=== PATIENT | male | born 1930 | race Caucasian/White ===

== ENCOUNTER 2018-07-16 11:49 | Emergency (ER) | payer MEDICARE, BC ==
--- NOTE | 2018-07-16 12:06 | EDM.PDOC ---
ED HPI GENERAL MEDICAL PROBLEM - General Chief Complaint: Abdominal Pain Stated Complaint: FALL Time Seen by Provider: 07/16/18 11:50 Source of Information: Reports: Patient, Family History Limitations: Reports: Physical Impairment - History of Present Illness INITIAL COMMENTS - FREE TEXT/NARRATIVE: 87 o.w.m with a H/O HTN and Prostate enlargement, came to the ed 2 days after he fell at home while in the bathroom. Pt;s found him sitting on the floow and c/o right upper abd. and right lower chest pain. Fall was unwitnessed and the pt is not able to describe the mech of injury. Pt was able to walk with a walker. Pt's pain increases when he take a deep breath. No N/V/D no SOB. Pt has to get up multiple times at night to void. Bladder scan showed 55 cc of urine in hie bladder after voiding. No other acute medical issues. BP 178/89 RR 17 Pulse ox 98% on RA Pulse 79 Temp 36.6 Onset Date: 07/14/18 Onset Time: 09:00 Duration: Day(s):, Getting Worse, Intermittent Quality: Reports: Ache, Burning, Dull Improves with: Reports: Cold Therapy, Rest Worsens with: Reports: Movement Context: Reports: Trauma (fell 2 days ago) Associated Symptoms: Reports: No Other Symptoms - Related Data Allergies Allergy/AdvReac Type Severity Reaction Status Date / Time No Known Allergies Allergy Verified 07/16/18 12:00 Home Meds: Home Meds Acetaminophen/HYDROcodone [[place] 325-5 MG] 1 tab PO Q6H PRN #6 tablet 07/16/18 [ Rx] Review of Systems - Review of Systems Review Of Systems: See Below Constitutional: Reports: No Symptoms Eyes: Reports: No Symptoms Ears: Reports: No Symptoms Nose: Reports: No Symptoms Mouth/Throat: Reports: No Symptoms Respiratory: Reports: Pleuritic Chest Pain Cardiovascular: Reports: No Symptoms GI/Abdominal: Reports: Abdominal Pain Genitourinary: Reports: Other (has to go 3-4 tomes a night) Musculoskeletal: Reports: No Symptoms Skin: Reports: No Symptoms Neurological: Reports: No Symptoms Psychiatric: Reports: No Symptoms ED EXAM, GENERAL - Physical Exam Exam: See Below Exam Limited By: No Limitations General Appearance: Alert, WD/WN, Moderate Distress Eye Exam: Bilateral Eye: Normal Inspection Ears: Normal External Exam Ear Exam: Bilateral Ear: Auricle Normal Nose: Normal Inspection Throat/Mouth: Normal Inspection, Normal Lips, Normal Voice, No Airway Compromise Head: Atraumatic, Normocephalic Neck: Normal Inspection, Supple, Non-Tender, Full Range of Motion Respiratory/Chest: Lungs Clear, Decreased Breath Sounds (right ant lung due to pleuritic pain) Cardiovascular: Normal Peripheral Pulses, Regular Rate, Rhythm, No Edema, No Gallop GI/Abdominal: Tender (RUQ of abdomen) (Male) Exam: Deferred Rectal (Males) Exam: Deferred Back Exam: Normal Inspection, Full Range of Motion Extremities: Normal Inspection, Normal Range of Motion, Non-Tender, No Pedal Edema Neurological: Alert, Oriented, CN II-XII Intact, Normal Cognition, Normal Gait Psychiatric: Normal Affect, Normal Mood Skin Exam: Warm, Dry, Intact, Normal Color, No Rash Lymphatic: No Adenopathy Course - Vital Signs Text/Narrative:: 87 o.w.m with a H/O HTN and Prostate enlargement, came to the ed 2 days after he fell at home while in the bathroom. Pt;s found him sitting on the floow and c/o right upper abd. and right lower chest pain. Fall was unwitnessed and the pt is not able to describe the mech of injury. Pt was able to walk with a walker. Pt's pain increases when he take a deep breath. No N/V/D no SOB. Pt has to get up multiple times at night to void. Bladder scan showed 55 cc of urine in hie bladder after voiding. No other acute medical issues. BP 178/89 RR 17 Pulse ox 98% on RA Pulse 79 Temp 36.6 PE: WNWD W M with HTN and RUQ of abd. and right ant lower chest pain with insp and palpation. Imaging: CT abd with contrast: Fx 7tha nd 8th rip anteriorly. Labs: CBC nl BMP Nl except: BUN 28 Cr 1.6 GFR 41 Glc 256 INR 3.78 Impression: Fall, Fx'd 7thand 8th right ant ribs, H/O enlarged prostate. TxL MS, Ice, Reexam: Improved, NS helped the pain. Plan: D/C with instructions Last Recorded V/S: Last Vital Signs Temp 36.4 C 07/16/18 11:50 Pulse 66 07/16/18 15:30 Resp 18 07/16/18 15:30 BP 156/81 H 07/16/18 15:30 Pulse Ox 98 07/16/18 15:30 - Orders/Labs/Meds Orders: Active Orders 24 hr Category Date Time Status Bladder Scan [RC] ASDIRECTED Care 07/16/18 14:56 Active Incentive Spirometry [RT Incentive Spirometry] [RC] Care 07/16/18 15:35 Active ASDIRECTED Abdomen Pelvis w Cont [CT] Stat Exams 07/16/18 12:04 Taken impression: Fall Fx'd alex 7 and 8 right chest wall Labs: Laboratory Tests 07/16/18 07/16/18 07/16/18 Range/Units 12:16 12:16 12:16 WBC 6.6 (4.5-12.0) X10-3/uL RBC 4.55 (4.30-5.75) x10(6)uL Hgb 13.8 (13.5-17.8) g/dL Hct 42.1 (30.0-51.3) % MCV 92.5 (80-96) fL MCH 30.4 (27.7-33.6) pg MCHC 32.9 (32.2-35.4) g/dL RDW 12.9 (11.5-15.5) % Plt Count 135 (125-369) X10(3)uL MPV 11.2 H (7.4-10.4) fL Neut % (Auto) 72.2 (46-82) % Lymph % (Auto) 17.6 (13-37) % [place] % (Auto) 8.1 (4-12) % Eos % (Auto) 2 (1.0-5.0) % Baso % (Auto) 1 (0-2) % Neut # (Auto) 4.8 (1.6-8.3) # Lymph # (Auto) 1.2 (0.6-5.0) # [place] # (Auto) 0.5 (0.0-1.3) # Eos # (Auto) 0.1 (0.0-0.8) # Baso # (Auto) 0.0 (0.0-0.2) # PT 36.2 H* (8.7-11.1) INR 3.78 H (0.89-1.13) Sodium 143 (135-145) mmol/L Potassium 4.5 (3.5-5.3) mmol/L Chloride 106 (100-110) mmol/L Carbon Dioxide 29 (21-32) mmol/L BUN 28 H (7-18) mg/dL Creatinine 1.6 H (0.70-1.30) mg/dL Est Cr Clr Drug Dosing TNP Estimated GFR (MDRD) 41 L (>60) BUN/Creatinine Ratio 17.5 (9-20) Glucose 253 H (80-116) mg/dL Calcium 8.6 (8.6-10.2) mg/dL Total Bilirubin 0.6 (0.1-1.3) mg/dL Direct Bilirubin 0.10 (0.10-0.20) mg/dL AST 18 (5-25) IU/L ALT 17 (12-36) U/L Alkaline Phosphatase 88 (56-112) IU/L Total Protein 7.1 (6.0-8.0) g/dL Albumin 3.4 (2.9-4.5) g/dL Amylase 83 (25-115) U/L Meds: Medications Discontinued Medications Generic Name Dose Route Start Last Admin Trade Name Freq PRN Reason Stop Dose Admin Iopamidol 100 ml 07/16/18 12:16 Isovue-370 (76%) IV 07/16/18 12:17 ONETIME ONE Morphine Sulfate 2 mg 07/16/18 12:07 07/16/18 15:04 Morphine IVPUSH 07/16/18 12:08 Not Given ONETIME ONE Morphine Sulfate 2 mg 07/16/18 15:03 07/16/18 15:09 Morphine IVPUSH 07/16/18 15:04 2 mg ONETIME ONE Administration Departure - Departure Time of Disposition: 15:26 Disposition: Home, Self-Care 01 Condition: Good Clinical Impression: Supratherapeutic INR Fall Qualifiers: Encounter type: initial encounter Qualified Code(s): W19.XXXA - Unspecified fall, initial encounter - Discharge Information Prescriptions: Acetaminophen/HYDROcodone [[place] 325-5 MG] 1 tab PO Q6H PRN #6 tablet PRN Reason: for severe pain only Instructions: Fall Prevention in the Home, Adult, [id number], Incentive Spirometer, Rib Fracture, [id number] Referrals: Tucker Brock MD [Primary Care Provider] - Forms: ED Department Discharge Additional Instructions: Please apply ice to the affected area, Motin for mod pain, [place] for severe pain. Please ambulate daily. Please f/u your PMD, use incentive spirometer come back if your symptoms get worse acutely. - My Orders Last 24 Hours: My Active Orders 07/16/18 12:04 Abdomen Pelvis w Cont [CT] Stat 07/16/18 14:56 Bladder Scan [RC] ASDIRECTED 07/16/18 15:35 Incentive Spirometry [RT Incentive Spirometry] [RC] ASDIRECTED - Assessment/Plan Last 24 Hours: My Active Orders 07/16/18 12:04 Abdomen Pelvis w Cont [CT] Stat 07/16/18 14:56 Bladder Scan [RC] ASDIRECTED 07/16/18 15:35 Incentive Spirometry [RT Incentive Spirometry] [RC] ASDIRECTED
[2018-07-16] MEDS ORDERED: Morphine 2 MG/ML Syringe IVPUSH ONE ×2 (12:07→15:03)
[2018-07-16] MEDS ORDERED: Iopamidol 755 Mg/ML 100 ML Bottle IV ONE (12:16)
== END 2018-07-16 16:00 | disposition home or self-care (01) ==
LOC: FB.ED 11:49
DX: S22.41XA Multiple fractures of ribs, right side, initial encounter for closed fracture (principal); I10 Essential (primary) hypertension; Y92.002 Bathroom of unspecified non-institutional (private) residence as the place of occurrence of the external cause; W18.30XA Fall on same level, unspecified, initial encounter
CPT/HCPCS: 36415; 74177; 80048; 80076; 82150; 85025; 85610; 94150; 96374; 99284; J2270

== ENCOUNTER 2018-07-20 11:32 | Inpatient (IN) | payer MEDICARE, BC ==
--- NOTE | 2018-07-20 12:56 | EDM.PDOC ---
ED HPI GENERAL MEDICAL PROBLEM - General Chief Complaint: Laceration Stated Complaint: CUT TO HEAD Time Seen by Provider: 07/20/18 12:15 Source of Information: Reports: Patient History Limitations: Reports: No Limitations - History of Present Illness INITIAL COMMENTS - FREE TEXT/NARRATIVE: 87-year-old male who was sitting at the table and eating breakfast at approximately 10:30 AM and he apparently lost his balance and fell striking his right occiput on the cabinet. There was no loss of consciousness. He had no dizziness or presyncope prior to this. He apparently fell last week on 2018 and had several rib fractures on the right side. He has been doing okay since then but has had pain in the area and has required pain medication. The family reports that he seems to be quite a bit more weak then he has been. He tells me that he really has no pain right now. He states if he moves the wrong way he does have some pain in his right lateral chest that is a sharp pain and he rates it as an 8/10 at that point. It is a 0/10 at this point. He is also reporting the me that he has some mild neck soreness posteriorly and he is unsure if this is old or new. He denies any pain in the area of his injury which is in his right occiput with a scalp laceration here. No nausea. No vomiting. He is chronically anticoagulated on Coumadin. There are no other associated signs or symptoms. There are no other modifying factors. Onset: Today (10:30 AM) Duration: Other (No pain in head) Location: Reports: Head, Neck, Chest (Right lateral chest--this is from a previous fall and rib fractures and is better with each day.) Quality: Reports: Dull (Mild pain in neck. No pain in his occiput.) Severity: Mild Improves with: Reports: Rest Worsens with: Reports: Movement Context: Reports: Other (As above) Associated Symptoms: Reports: No Other Symptoms Other Treatments CREDIT RESOLUTION REPRESENTATIVE: Nothing - Related Data Allergies Allergy/AdvReac Type Severity Reaction Status Date / Time No Known Allergies Allergy Verified 07/20/18 11:49 Home Meds: Home Meds Acetaminophen/HYDROcodone [[place] 325-5 MG] 1 tab PO Q6H PRN #6 tablet 07/16/18 [ Rx] Lisinopril 10 mg BID 07/20/18 [History] Propranolol [Inderal] 10 mg PO BID 07/20/18 [History] Warfarin [Coumadin] 5 mg PO DAILY 07/20/18 [History] glipiZIDE [Glucotrol] 5 mg DAILY 07/20/18 [History] levETIRAcetam [Keppra] 250 mg PO DAILY 07/20/18 [History] levETIRAcetam [Keppra] 500 mg PO BEDTIME 07/20/18 [History] Past Medical History HEENT History: Reports: Impaired Vision Cardiovascular History: Reports: Afib, Heart Murmur, High Cholesterol, Hypertension, [place], Other (See Below) Other Cardiovascular History: spouse said that patient had a heart attack 40 years ago, heart murmur. 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, hemorrhagic CVA Psychiatric History: Reports: Anxiety, Depression Endocrine/Metabolic History: Reports: Diabetes, Type II, Hypothyroidism Hematologic History: Reports: Anticoagulation Therapy (On Coumadin), Blood Transfusion(s) Oncologic (Cancer) History: Reports: Colon - Infectious Disease History Infectious Disease History: Reports: Chicken Pox, Measles, Mumps - Past Surgical History HEENT Surgical History: Reports: Adenoidectomy, Tonsillectomy GI Surgical History: Reports: Appendectomy, Colon, Colonoscopy Male Surgical History: Reports: Other (See Below) Other Male Surgeries/Procedures: said that patient had a prostate procedure done unsure what kind of procedure. Musculoskeletal Surgical History: Reports: Other (See Below) Other Musculoskeletal Surgeries/Procedures:: R hip surgery Social & Family History - Tobacco Use Smoking Status *Q: Former Smoker (Only cigars and he has not smoked for the past 40 years) Tobacco Use Within Last Twelve Months: No - Caffeine Use Caffeine Use: Reports: Soda Other Caffeine Use: seldom - Alcohol Use Alcohol Use History: No - Living Situation & Occupation Living situation: Reports: Occupation: Retired Social History Comment: Lives at home independently with his . ED ROS GENERAL - Review of Systems Review Of Systems: See Below Constitutional: Reports: No Symptoms HEENT: Reports: No Symptoms Respiratory: Reports: No Symptoms Cardiovascular: Reports: No Symptoms Endocrine: Reports: No Symptoms GI/Abdominal: Reports: No Symptoms : Reports: No Symptoms Musculoskeletal: Reports: Neck Pain (Mild posterior) Skin: Reports: Other (Laceration to right occipital scalp) Neurological: Reports: Pre-Existing Deficit (Chronic right-sided weakness), Other (No loss of consciousness. No dizziness. No presyncope.) Hematologic/Lymphatic: Reports: Other (Chronically anticoagulated on Coumadin.) Immunologic: Reports: No Symptoms ED EXAM, SKIN/RASH Exam: See Below Exam Limited By: No Limitations General Appearance: Alert, WD/WN, No Apparent Distress Eye Exam: Bilateral Eye: EOMI, Normal Inspection, PERRL Ears: Normal External Exam, Hearing Loss (Chronic) Nose: Normal Inspection, Normal Mucosa, No Blood, Other (Face stable) Throat/Mouth: Normal Inspection, Normal Voice, No Airway Compromise Head: Normocephalic, Other (No crepitus. No depression. Occipital scalp laceration) Neck: Normal Inspection, Tender Midline (Mildly tender posteriorly) Respiratory/Chest: No Respiratory Distress, Lungs Clear, Normal Breath Sounds, No Accessory Muscle Use, Chest Non-Tender Cardiovascular: Normal Peripheral Pulses, No Gallop, Irregularly Irregular Peripheral Pulses: 2+: Radial (L), Radial (R) GI/Abdominal: Normal Bowel Sounds, Soft, Non-Tender, No Organomegaly, No Distention, No Mass Back Exam: Normal Inspection. No: Vertebral Tenderness Extremities: Normal Inspection, Normal Range of Motion, Normal Capillary Refill Neurological: Alert, Oriented, Normal Cognition, Other (Right-sided weakness, chronic and unchanged per family) Psychiatric: Normal Affect Skin: Warm, Dry, Normal Color, Other (3.5 cm laceration to right occipital scalp ) Location, Skin: Head (Right occipital scalp) Characteristics: Linear Lymphatic: No Adenopathy ED SKIN PROCEDURES - Laceration/Wound Repair Right Occipital Lac/Wound length In cm: 3.5 Appearance: Subcutaneous, Clean Distal NVT: Neuro & Vascular Intact Anesthetic Type: Local Local Anesthesia - Lidocaine (Xylocaine): 1% Plain Local Anesthetic Volume: 4cc Skin Prep: Chlorhexidine ([place]), Saline Exploration/Debridement/Repair: Other (No debridement) Closed with: [place] # of Sutures: 4 EKG INTERPRETATION EKG Date: 07/20/18 Time: 15:38 Rhythm: NSR Rate (Beats/Min): 52 [place]: LAD-Left [place] Deviation P-Wave: Present (Prolonged ND interval/first-degree AV block) QRS: Other (LAFB; LVH) ST-T: Normal QT: Normal Comparison: NA - No Prior EKG (No prior EKG in our system for comparison.) EKG Interpretation Comments: Normal sinus rhythm with a rate of 52. There is a first-degree AV block. There is evidence of LVH. There is a right bundle-branch block and a left anterior fascicular block with a left axis. There is no current of injury or ischemia present. Course - Vital Signs Last Recorded V/S: Last Vital Signs Temp 36.4 C 07/20/18 15:49 Pulse 53 L 07/20/18 15:49 Resp 18 07/20/18 15:49 BP 166/70 H 07/20/18 15:49 Pulse Ox 100 07/20/18 15:49 - Orders/Labs/Meds Orders: Active Orders 24 hr Category Date Time Status Patient Status Manage Transfer [TRANSFER] Routine ADT 07/20/18 14:29 Active EKG Documentation Completion [RC] ASDIRECTED Care 07/20/18 14:21 Active Vaccines to be Administered [RC] PER UNIT ROUTINE Care 07/20/18 14:28 Active Sodium Chloride 0.9% [Saline Flush] Med 07/20/18 14:28 Active 10 ml FLUSH ASDIRECTED PRN Peripheral IV Insertion Adult [OM.PC] Routine Oth 07/20/18 14:28 Ordered EKG 12 Lead [EK] Routine Ther 07/20/18 14:21 Ordered Medication Orders Acetaminophen (Tylenol) 650 mg PO Q4H PRN PRN Reason: Pain (Mild 1-3)/fever Glipizide (Glucotrol) 5 mg PO DAILY HARIKA Levetiracetam (Keppra) 500 mg PO BEDTIME HARIKA Levetiracetam (Keppra) 250 mg PO DAILY HARIKA Lisinopril (Prinivil) 10 mg PO BID HARIKA Sodium Chloride (Saline Flush) 10 ml FLUSH ASDIRECTED PRN PRN Reason: Keep Vein Open Labs: Laboratory Tests 07/20/18 07/20/18 07/20/18 Range/Units 11:53 12:45 12:50 WBC 5.0 (4.5-12.0) X10-3/uL RBC 4.26 L (4.30-5.75) x10(6)uL Hgb 13.1 L (13.5-17.8) g/dL Hct 38.9 (30.0-51.3) % MCV 91.4 (80-96) fL MCH 30.7 (27.7-33.6) pg MCHC 33.6 (32.2-35.4) g/dL RDW 12.7 (11.5-15.5) % Plt Count 116 L (125-369) X10(3)uL MPV 11.6 H (7.4-10.4) fL Neut % (Auto) 67.4 (46-82) % Lymph % (Auto) 19.9 (13-37) % [place] % (Auto) 9.7 (4-12) % Eos % (Auto) 3 (1.0-5.0) % Baso % (Auto) 0 (0-2) % Neut # (Auto) 3.4 (1.6-8.3) # Lymph # (Auto) 1.0 (0.6-5.0) # [place] # (Auto) 0.5 (0.0-1.3) # Eos # (Auto) 0.1 (0.0-0.8) # Baso # (Auto) 0.0 (0.0-0.2) # PT (8.7-11.1) INR (0.89-1.13) Sodium (135-145) mmol/L Potassium (3.5-5.3) mmol/L Chloride (100-110) mmol/L Carbon Dioxide (21-32) mmol/L BUN (7-18) mg/dL Creatinine (0.70-1.30) mg/dL Est Cr Clr Drug Dosing mL/min Estimated GFR (MDRD) (>60) BUN/Creatinine Ratio (9-20) Glucose (80-116) mg/dL POC Glucose 301 H (80-116) mg/dL Calcium (8.6-10.2) mg/dL Magnesium (1.8-2.5) mg/dL Urine Color Yellow (YELLOW) Urine Appearance Clear (CLEAR) Urine pH 5.0 (5.0-6.5) Ur Specific [place] 1.020 (1.010-1.025) Urine Protein Negative (NEGATIVE) mg/dL Urine Glucose (UA) 250 H (NORMAL) mg/dL Urine Ketones Negative (NEGATIVE) mg/dL Urine Occult Blood Negative (NEGATIVE) Urine Nitrite Negative (NEGATIVE) Urine Bilirubin Negative (NEGATIVE) Urine Urobilinogen Normal (NEGATIVE) mg/dL Ur Leukocyte Esterase Small H (NEGATIVE) Urine WBC 5-10 H (0-5) Ur Squamous Epith Cells Few H (NS,R,O) Urine Bacteria Moderate H (NS) 07/20/18 07/20/18 Range/Units 12:50 12:50 WBC (4.5-12.0) X10-3/uL RBC (4.30-5.75) x10(6)uL Hgb (13.5-17.8) g/dL Hct (30.0-51.3) % MCV (80-96) fL MCH (27.7-33.6) pg MCHC (32.2-35.4) g/dL RDW (11.5-15.5) % Plt Count (125-369) X10(3)uL MPV (7.4-10.4) fL Neut % (Auto) (46-82) % Lymph % (Auto) (13-37) % [place] % (Auto) (4-12) % Eos % (Auto) (1.0-5.0) % Baso % (Auto) (0-2) % Neut # (Auto) (1.6-8.3) # Lymph # (Auto) (0.6-5.0) # [place] # (Auto) (0.0-1.3) # Eos # (Auto) (0.0-0.8) # Baso # (Auto) (0.0-0.2) # PT 56.8 H* (8.7-11.1) INR 5.96 H* (0.89-1.13) Sodium 145 (135-145) mmol/L Potassium 4.8 (3.5-5.3) mmol/L Chloride 109 (100-110) mmol/L Carbon Dioxide 29 (21-32) mmol/L BUN 45 H D (7-18) mg/dL Creatinine 1.7 H (0.70-1.30) mg/dL Est Cr Clr Drug Dosing 30.42 mL/min Estimated GFR (MDRD) 38 L (>60) BUN/Creatinine Ratio 26.5 H (9-20) Glucose 179 H (80-116) mg/dL POC Glucose (80-116) mg/dL Calcium 8.5 L (8.6-10.2) mg/dL Magnesium 2.1 (1.8-2.5) mg/dL Urine Color (YELLOW) Urine Appearance (CLEAR) Urine pH (5.0-6.5) Ur Specific [place] (1.010-1.025) Urine Protein (NEGATIVE) mg/dL Urine Glucose (UA) (NORMAL) mg/dL Urine Ketones (NEGATIVE) mg/dL Urine Occult Blood (NEGATIVE) Urine Nitrite (NEGATIVE) Urine Bilirubin (NEGATIVE) Urine Urobilinogen (NEGATIVE) mg/dL Ur Leukocyte Esterase (NEGATIVE) Urine WBC (0-5) Ur Squamous Epith Cells (NS,R,O) Urine Bacteria (NS) Meds: Medications Generic Name Dose Route Start Last Admin Trade Name Freq PRN Reason Stop Dose Admin Acetaminophen 650 mg 07/20/18 15:38 Tylenol PO Q4H PRN Pain (Mild 1-3)/fever Glipizide 5 mg 07/21/18 09:00 Glucotrol PO DAILY HARIKA Levetiracetam 500 mg 07/20/18 21:00 Keppra PO BEDTIME HARIKA Levetiracetam 250 mg 07/21/18 09:00 Keppra PO DAILY HARIKA Lisinopril 10 mg 07/20/18 21:00 Prinivil PO BID HARIKA Sodium Chloride 10 ml 07/20/18 14:28 Saline Flush FLUSH ASDIRECTED PRN Keep Vein Open Discontinued Medications Generic Name Dose Route Start Last Admin Trade Name Freq PRN Reason Stop Dose Admin Ceftriaxone Sodium 1 gm 07/20/18 15:30 Rocephin IV 07/20/18 15:31 ONETIME ONE Diphtheria/Tetanus/Acell Pertussis 0.5 ml 07/20/18 14:28 07/20/18 15:48 Adacel IM 07/20/18 14:29 0.5 ml .ONCE ONE Administration - Radiology Interpretation Free Text/Narrative:: CT scan of the patient's head showed bilateral chronic subdural hygromas or hematomas. No acute bleed. No fracture per the radiologist. CT scan of the cervical spine showed degenerative changes but no acute pathology per the radiologist. - Re-Assessments/Exams Free Text/Narrative Re-Assessment/Exam: 07/20/18 14:32: The patient's blood tests do show an increase in his INR from 3.7 to 5.96 and slight worsening of his renal insufficiency. Patient with recurrent fall and questionable recurrent syncope, supratherapeutic INR, bilateral cystic hygromas and progressive weakness with inability to ambulate without extreme assistance over the past 4 days since seen on 07/16/2018. Patient has failed outpatient management. He is at significant risk for recurrent falls and further injury. He is also at significant risk for morbidity and mortality. His plan of care cannot be safely accomplished as an outpatient. Therefore he will need admission to the hospital. It will take longer than a 2 midnight stay accomplish this plan of care as well. I have discussed this with the patient's and she is in agreement with the plans for admission. I have called and discussed patient's case with Dr. Tesfaye, hospitalist at [facility], and he has agreed to admit the patient. Additionally an EKG has been ordered and I will review this prior to the patient going to the floor. The patient was given a Tdap Immunization to bring his tetanus immunization status up-to-date as well. Departure - Departure Time of Disposition: 14:37 Disposition: Admitted As Inpatient 64 Condition: Fair Clinical Impression: Recurrent syncope, Supratherapeutic INR, Acute on chronic renal insufficiency, Chronic subdural hematoma, Rapidly progressive weakness Head contusion Qualifiers: Encounter type: initial encounter Contusion of head detail: scalp Qualified Code(s): S00.03XA - Contusion of scalp, initial encounter Occipital scalp laceration Qualifiers: Encounter type: initial encounter Qualified Code(s): S01.01XA - Laceration without foreign body of scalp, initial encounter - Discharge Information - My Orders Last 24 Hours: My Active Orders 07/20/18 14:21 EKG Documentation Completion [RC] ASDIRECTED EKG 12 Lead [EK] Routine 07/20/18 14:28 Vaccines to be Administered [RC] PER UNIT ROUTINE Sodium Chloride 0.9% [Saline Flush] 10 ml FLUSH ASDIRECTED PRN Peripheral IV Insertion Adult [OM.PC] Routine 07/20/18 14:29 Patient Status Manage Transfer [TRANSFER] Routine - Assessment/Plan Last 24 Hours: My Active Orders 07/20/18 14:21 EKG Documentation Completion [RC] ASDIRECTED EKG 12 Lead [EK] Routine 07/20/18 14:28 Vaccines to be Administered [RC] PER UNIT ROUTINE Sodium Chloride 0.9% [Saline Flush] 10 ml FLUSH ASDIRECTED PRN Peripheral IV Insertion Adult [OM.PC] Routine 07/20/18 14:29 Patient Status Manage Transfer [TRANSFER] Routine
--- NOTE | 2018-07-20 13:54 | CT ---
INDICATION: Fall with head injury, patient on Coumadin, struck right posterior head. CT HEAD WITHOUT CONTRAST: Spiral examination of the brain was obtained with sagittal and coronal reconstructions, 07/20/18 - no comparisons. Total exam DLP = 1,244.99 mGy-cm. The paranasal sinuses and mastoid air cells visualized appear to be well- aerated. No cranial fracture site was noted. Calcifications are noted in the left vertebral and internal carotid arteries, as well as middle cerebral artery on the right. No significant shift of midline structures was suggested. Lateral ventricles were prominent, as are the remainder of the ventricles, suggesting central atrophy with relatively more prominent left lateral ventricle suggesting additional atrophy on the left compared with the right. Patchy decreased density in the white matter is more severe on the left, compatible with moderate microvascular disease on the left and mild on the right , although other cause of leukoencephalopathy cannot be entirely excluded. There are frontoparietal subdural hygromas but with some increased density present, raising question of chronic subdural hematomas. No definite acute intracranial abnormality was identified - no definite fresh blood in the arachnoid space, subdural or parenchymal, was seen. IMPRESSION: 1. Possible chronic bilateral subdural hematomas, frontoparietal and some temporal on the right; however, no acute intracranial abnormality was suggested. 2. Microvascular disease type changes in the white matter, more severe on the left. 3. Central atrophy, more severe on the left. 4. Cerebrovascular disease with arterial calcifications noted. Report was called to Dr. Moreland at approximately 1300 hours on 07/20/18. [facility]
[2018-07-20] MEDS ORDERED: Diphtheria,Pertussis(Acell),Tetanus Vaccine 0.5 ML SDV IM ONE (14:28)
[2018-07-20] MEDS ORDERED: Sodium Chloride 0.9% 10 ML Syringe FLUSH PRN (14:28)
[2018-07-20] MEDS ORDERED: cefTRIAXone 1 GM in Sodium Chloride 0.9% 50 ML IV ONE (14:42)
--- NOTE | 2018-07-20 14:46 | CT ---
INDICATION: Fall with head injury, mild neck pain. CT CERVICAL SPINE WITHOUT CONTRAST: Spiral 2.5 mm axial sections were obtained through the cervical spine with sagittal and coronal reconstructions, 07/20/18 - no comparisons. Total exam DLP = 375.30 mGy-cm. Degenerative changes are noted at the atlantoodontoid joint with severe narrowing of that joint space, as well as some subchondral cystic change, as well as sclerosis. Otherwise, the odontoid and atlas appear to be intact. Prevertebral space and bone density appear to be normal. A definite acute fracture or dislocation was not identified in general. Hypertrophic degenerative changes are noted from C2-3 through T2-3. Degenerative disk disease is suggested, mild at C4-5 and fairly severe with virtually no remaining disk space at C5-6. Degenerative disk disease is also seen at C6-7, C7-T1, and probably at T1-T2 with sclerosis and subchondral cystic changes at those levels but with the most severe changes seen at the C5- 6 level and reversal of normal cervical lordosis centered at that level. Neural foramina were narrowed at C5-6, C6-7. Hypertrophic changes are noted at lateral masses, most severe at the mid cervical levels with uncinate joint degenerative changes also most severe at those levels. The lung apices that were included on the exam were unremarkable. No evidence of gross spinal stenosis was seen. However, there is some impingement on the canal present, especially at the C5-6 level with some narrowing, especially on the right, due to the hypertrophic changes off vertebral bodies at C5-6. There is some narrowing also of the canal mostly on the left at C6-7. IMPRESSION: 1. No acute fracture or dislocation identified. 2. Osteoarthritis and degenerative disk disease, as noted above. Report was called to Dr. Moreland at 1302 hours on 07/20/18. [facility]
[2018-07-20] MEDS ORDERED: cefTRIAXone 1 GM Vial IV ONE (15:30)
[2018-07-20] MEDS ORDERED: Acetaminophen 325 MG Tab PO PRN (15:38)
[2018-07-20] MEDS ORDERED: Acetaminophen/HYDROcodone 325-5 MG Tab PO PRN (17:23)
[2018-07-20] MEDS ORDERED: levETIRAcetam 500 MG Tab PO SCH (21:00)
[2018-07-20] MEDS: Lisinopril 10 MG Tab PO SCH (21:00)
--- NOTE | 2018-07-21 00:06 | HP ---
ADMISSION DATE: 07/20/2018 CHIEF COMPLAINT: Syncope with fall. HISTORY OF PRESENT ILLNESS: Mr. Turner is an 87-year-old resident of [place], [place] with a history of a remote CVA back in 2000, which caused him to have a greater than 1-month hospitalization and right-sided residual history of an AZ 42 years ago, hypertension, diabetes, surgery for colon cancer and chronic anticoagulation. According to his , he is on anticoagulation because of the stroke and was started within the first month after stroke, but she describes his stroke as a bleeding-type stroke. Data from the clinic also lists a partial seizure disorder post stroke. According to the patient and his approximately 5 days ago, he was sitting on the toilet seat. His thought he was in the bathroom a little bit too long, so went to check on him, she was just going to open the door when she heard a thump and saw that he had fallen off the toilet seat onto the grab bar for the tub. He broke 2 ribs, went into the clinic, and was checked by Dr. Brock, he was treated with pain medications and seemed to be doing satisfactorily at home. This morning, he was sitting in a chair at the kitchen table when he fell off the chair onto the floor. He did not sustain any new injuries. His was there and witnessed it. She did not recognize that he was lightheaded prior to the fall, but he was not trying to stand up and he did not have loss of consciousness. For this reason, he was taken in to the emergency room at [facility], evaluated by Dr. Moreland and is now admitted with episodes with likely syncope. His does recall that he has fallen a few times in the past at least one of the times she remembers it was from the sitting position as well. He has not had documented arrhythmia, but as mentioned, he has a history of partial seizure disorder. PAST MEDICAL HISTORY: He is status post a stroke in 2000 with right hemiplegia and dysarthria. He is status post appendectomy and ORIF of a severe right crushing hip injury. He has had malignant colon polypectomy with wedge rectal resection and primary anastomosis approximately 40 years ago with no recurrence. He has had bilateral cataract surgeries. He reports having had an AZ at age 43 with a good recovery. He has type 2 diabetes and chronic essential hypertension, both that he reports is well controlled. MEDICATIONS: 1. Lisinopril 10 mg b.i.d. 2. Keppra 250 mg a.m., 500 mg p.m. 3. Glipizide 5 mg daily. 4. He has also been on warfarin 5 mg daily and propranolol 10 mg b.i.d., as well as recently hydrocodone 1 tablet every 6 hours p.r.n. pain for his recent rib fractures. ALLERGIES: None. HABITS: Nonsmoker. No alcohol. No caffeine. FAMILY AND SOCIAL HISTORY: The patient's father at age 43 of stomach cancer. Mother at age 65 of multiple strokes. He had 1 brother, who was in this institution, who in his 40s. The patient has been for 42 years to his current . They are both before and he had 4 children and she had 3 children when they got , 3 of the children are living within the [facility] [place]. 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 He currently lives in [place]. REVIEW OF SYSTEMS: GENERAL: No tonic-clonic seizures or fully witnessed syncopal episodes. HEENT: No recent changes in hearing or vision. No headaches. He did hit his head and required laceration repair in the ER. No sore throat or URI. CHEST: No cough or purulent sputum. No chest pain or palpitations. GASTROINTESTINAL: No abdominal pain, nausea, or diarrhea. MUSCULOSKELETAL: No joint inflammation, swelling, or skin rash. He does walk with a walker at home due to his old stroke and poor balance. No mood instability or temperature intolerance. PHYSICAL EXAMINATION: GENERAL: He is alert. He is hard of hearing; however, no hearing aids are in place. VITAL SIGNS: Blood pressure 166/70, pulse 53 and regular, respirations 18, O2 saturation 100% on room air, temp 97.6, weight 206 pounds stated. SKIN: Anicteric, warm, dry. There was a 3.5 cm laceration in the right occipital scalp with derrick in place. LUNGS: Clear at the bases. HEART: Regular without murmur, rub, or gallop. Carotids are brisk without bruits. ABDOMEN: Normal bowel sounds. Soft and nontender. EXTREMITIES: Warm, well perfused. He has 1+ edema at the left medial malleolus and 3+ edema at the right lower extremity. He has normal strength in the left upper and lower extremities and moderate antigravity strength in the right lower extremity. [employer] strength and arm abduction are significantly weaker on the right upper extremity than the left. Speech is somewhat halting. EKG shows sinus rhythm at 52 beats per minute with likely LVH and right bundle branch block. No ischemic changes. LABORATORY DATA: Hemoglobin 13.1, white count 5000. INR 5.96. Creatinine 1.7, BUN 45, glucose 301. Urinalysis; 5-[address] of the head showed evidence of old small frontoparietal hygromas, no acute findings, but left central atrophy present with microvascular changes. ASSESSMENT: 1. An 87-year-old man with several falls resulting in rib fractures last week and scalp laceration, head contusion this week with prior episodes of falls as well in the setting of an underlying seizure disorder, post stroke, and bifascicular block on EKG. 2. History of old cerebrovascular accident with residual right partial hemiplegia. 3. Significant hearing loss. 4. Chronic essential hypertension. 5. Type 2 diabetes. 6. Remote history of a myocardial infarction at age 43. Details unclear. 7. Remote history of colorectal surgery for colon cancer with no current evidence of recurrence. 8. Chronic anticoagulation post stroke. 9. High INR. PLAN: He is admitted to the hospital. We will put him on telemetry. We will hold his warfarin and his beta lisa. We will consider increasing the Keppra to 500 mg b.i.d. We will provide palliative care measures for his underlying old cerebrovascular disease and old stroke. I anticipate a 48 to 72-hour hospital stay with plans for him to return home in [place] upon discharge. /[id number] ERICK/RENUKA
--- NOTE | 2018-07-21 08:03 | HP ---
ADMISSION DATE: 07/20/2018 ADDENDUM: PAST MEDICAL HISTORY: TURP for BPH. /[id number] EMILY
[2018-07-21] MEDS: glipiZIDE 5 MG Tab PO SCH (08:20)
[2018-07-21] MEDS: Lisinopril 10 MG Tab PO SCH ×2 (08:20→21:19)
[2018-07-21] MEDS ORDERED: levETIRAcetam 250 MG Tab PO SCH (09:00)
[2018-07-21] MEDS ORDERED: levETIRAcetam 250 MG Tab PO ONE (09:45)
[2018-07-21] MEDS ORDERED: Nystatin Topical Powder 15 GM Bottle TOP PRN (10:00)
[2018-07-21] MEDS: PEG 400/Propylene Glycol Ophth Soln 15 ML Bottle EYEBOTH SCH ×2 (10:19→21:19)
--- NOTE | 2018-07-21 11:19 | PN ---
DATE SEEN: 07/21/2018 SUBJECTIVE: Norm is an 87-year-old man with a history of frequent falls resulting in rib fractures last week and an occipital scalp laceration this week. In both episodes, his was nearby and though maybe did not have eye contact with him the whole time, seemed to indicate that there was no sign that he passed out. Past history included a severe stroke in 2000 with right hemiplegia and a poststroke seizure disorder. He has been on Keppra since that. He is examined. His EKG showed a trifascicular block, and his INR was slightly elevated at 5.96 on admission. OBJECTIVE: GENERAL: He is alert. He is hard of hearing, but he is a fairly good historian. VITAL SIGNS: Blood pressure 170/83, pulse 58 and regular, respirations normal, and O2 saturation 95% on room air. Weight 196 pounds. SKIN: No sign of rash. MOUTH: Dry. LUNGS: Clear to the bases. HEART: Regular without murmur or gallop. ABDOMEN: Soft and nontender. EXTREMITIES: No edema. Slightly less strength in the right upper extremity and right lower extremity due to old stroke. LABORATORY DATA: INR this morning down to 4.34. Creatinine 1.7 yesterday. Urinalysis showed 5 to 10 white cells. ASSESSMENT: 1. Falls resulting in injury, question cardiac as the last two of these seemed to have occurred from a sitting position versus possible mild seizures. No sign of new strokes. 2. History of old stroke with underlying seizure disorder. 3. Chronic anticoagulation poststroke, slightly supratherapeutic. 4. Type 2 diabetes. PLAN: At this time, I will increase his Keppra to 500 mg b.i.d. We will continue telemetry monitoring. Increase his activity as tolerated and if strong enough, we will plan to discharge within 24 to 48 hours back to his home again. We will continue to provide palliative care measures for his underlying long- term disability from stroke. /[id number] ERICK/RENUKA
[2018-07-21] MEDS: levETIRAcetam 500 MG Tab PO SCH (21:19)
[2018-07-22] MEDS: Lisinopril 10 MG Tab PO SCH ×2 (09:15→20:51)
[2018-07-22] MEDS: levETIRAcetam 500 MG Tab PO SCH ×2 (09:15→20:50)
[2018-07-22] MEDS: glipiZIDE 5 MG Tab PO SCH (09:18)
[2018-07-22] MEDS: PEG 400/Propylene Glycol Ophth Soln 15 ML Bottle EYEBOTH SCH ×2 (09:18→20:51)
[2018-07-22] MEDS: Aspirin 325 MG Tab.EC PO SCH (12:58)
--- NOTE | 2018-07-22 14:18 | PN ---
DATE SEEN: 07/22/2018 SUBJECTIVE: Norm Turner is an 87-year-old male, seen today for review. Admitted with some peculiar episodes. Syncopal versus falling asleep episode on the toilet, another episode sitting on the kitchen chair. No loss of consciousness. History of remote seizures, which are partial complex. On admission, clinical findings of significance, CT of his head revealed chronic subdural hygromas. Cervical spine CT unremarkable. LABORATORY STUDIES: Hemoglobin 13.1, white count 5,000. INR was markedly elevated at 5.96, 4.34, today 2.36, will hold, switch to aspirin. GFR 38 and 52, sugars mildly elevated, diabetic, urinalysis unremarkable except for a few white cells. MEDICATIONS: Medications on board as noted. Keppra was increased from 750 mg in divided doses to 500 b.i.d., 1000 mg daily. Medications on board of significance: 1. Aspirin. 2. Glipizide. 3. Hydrocodone. 4. Keppra. 5. Lisinopril. 6. Nystatin. ALLERGIES: As noted. PHYSICAL EXAMINATION: VITAL SIGNS: 89.67 kg, 136/76, 16, and O2 saturation 97%. GENERAL: Appears comfortable. She has obvious right hemiplegia. Speech was fluent. Decreased hearing. NECK: Benign. Thyroid small. CHEST: Clear in all lung okeefe. No adventitious sounds. HEART: No ectopy or murmur. ABDOMEN: Benign. ASSESSMENT: Vasovagal blood pressure related issues. PLAN: We will check some postural blood pressures, we will switch from Coumadin to aspirin 325 mg one daily. Implications and concerns variable pro time, risk for fall or injury, and subdural hygromas. Family in attendance. Telemetry has been otherwise stable. EKG to be performed for stability, telemetry to be discontinued. Expect short-term stay. /[id number] /RENUKA
[2018-07-23] MEDS: PEG 400/Propylene Glycol Ophth Soln 15 ML Bottle EYEBOTH SCH (10:01)
[2018-07-23] MEDS: Lisinopril 10 MG Tab PO SCH (10:01)
[2018-07-23] MEDS: levETIRAcetam 500 MG Tab PO SCH (10:02)
[2018-07-23] MEDS: glipiZIDE 5 MG Tab PO SCH (10:02)
[2018-07-23] MEDS: Aspirin 325 MG Tab.EC PO SCH (10:02)
--- NOTE | 2018-07-23 12:52 | DISCH ---
DISCHARGE DATE: 07/23/2018 DIAGNOSES: 1. Vasovagal syncopal episode. 2. Old CVA with moderate residual right hemiplegia. 3. Neurosensory hearing loss. 4. Essential hypertension. 5. Type 2 diabetes mellitus. 6. Remote coronary disease. 7. Chronic anticoagulation post stroke. 8. Moderate INR. 9. New diagnosis of old chronic subdural hematoma. HISTORY OF PRESENT ILLNESS: Norm Turner is an 87-year-old male, a resident of [place], who was seen, evaluated, and admitted from home. He has had two episodes of questionable syncopal. Unwitnessed episode in the bathroom, second at the kitchen table. No suspicion for loss of consciousness. Origin was undetermined. He was admitted for observation. DIAGNOSTIC STUDIES OF IMPORTANCE: Cervical spine CT revealed degenerative changes, but no acute fracture. CT head revealed chronic bilateral subdural frontoparietal, temporal, right side microvascular changes, atrophy, and previous findings. Stability in that regard. LABORATORY STUDIES: Unremarkable. White count 5000, hemoglobin 13.1, normal indices. INR was markedly elevated. Reduced to normal, held in the interim. Glucoses were stable. Medications were adjusted accordingly. GFR reduced at 32, improved to 58.2. HOSPITAL COURSE: During this hospital stay, no complicating issue. Postural blood pressure satisfactory. Was on telemetry, no arrhythmias. Was ambulating and doing well. Concerns and issues, medications, fall precaution. PT under consideration. Discharge followup in one week's time. Also had a scalp laceration on right side, suture removal will be planned for next or Wednesday. Discharged with recommendations. No Coumadin, aspirin 325 only daily. ADDENDUM: A 30 minute visit. Discharge planning and discharge of patient today. /[id number] AMBROCIO/RENUKA
== END 2018-07-23 10:55 | disposition home or self-care (01) | DRG 981 ==
LOC: FB.ED 11:32 → FB.MS 14:33
PROVIDERS: ADMIT Family Medicine; ATTEND Family Medicine
PROC: 0JQ00ZZ Repair Scalp Subcutaneous Tissue and Fascia, Open Approach (ICD-10-PCS; principal; 2018-07-20)
PROC: 3E0234Z Introduction of Serum, Toxoid and Vaccine into Muscle, Percutaneous Approach (ICD-10-PCS; 2018-07-20)
DX: R55 Syncope and collapse (principal); S00.03XA Contusion of scalp, initial encounter; I62.03 Nontraumatic chronic subdural hemorrhage; I69.251 Hemiplegia and hemiparesis following other nontraumatic intracranial hemorrhage affecting right dominant side; I45.2 Bifascicular block; I69.298 Other sequelae of other nontraumatic intracranial hemorrhage; G40.909 Epilepsy, unspecified, not intractable, without status epilepticus; I69.222 Dysarthria following other nontraumatic intracranial hemorrhage; Z85.038 Personal history of other malignant neoplasm of large intestine; I12.9 Hypertensive chronic kidney disease with stage 1 through stage 4 chronic kidney disease, or unspecified chronic kidney disease; I48.91 Unspecified atrial fibrillation; S01.01XA Laceration without foreign body of scalp, initial encounter; N18.9 Chronic kidney disease, unspecified; E11.22 Type 2 diabetes mellitus with diabetic chronic kidney disease; Z79.01 Long term (current) use of anticoagulants; W07.XXXA Fall from chair, initial encounter; N28.9 Disorder of kidney and ureter, unspecified; S09.90XA Unspecified injury of head, initial encounter; M54.2 Cervicalgia; Y92.009 Unspecified place in unspecified non-institutional (private) residence as the place of occurrence of the external cause; I25.2 Old myocardial infarction; Z90.49 Acquired absence of other specified parts of digestive tract; Z87.891 Personal history of nicotine dependence; Z23 Encounter for immunization; R53.1 Weakness; E03.9 Hypothyroidism, unspecified; R79.1 Abnormal coagulation profile; R29.6 Repeated falls; Z91.81 History of falling; E78.00 Pure hypercholesterolemia, unspecified; M19.90 Unspecified osteoarthritis, unspecified site; R01.1 Cardiac murmur, unspecified; F32.9 Major depressive disorder, single episode, unspecified; F41.9 Anxiety disorder, unspecified; H54.7 Unspecified visual loss; Z79.899 Other long term (current) drug therapy; N40.0 Benign prostatic hyperplasia without lower urinary tract symptoms; S22.41XD Multiple fractures of ribs, right side, subsequent encounter for fracture with routine healing; Z79.82 Long term (current) use of aspirin; H90.5 Unspecified sensorineural hearing loss; I25.10 Atherosclerotic heart disease of native coronary artery without angina pectoris
CPT/HCPCS: 12002; 36415; 70450; 72125; 80048; 80069; 81001; 82962; 83735; 84484; 85025; 85610; 87086; 90471; 90715; 93005; 93306; 97165-GO; 97530-GO; 99284-25; A9270-GY; J0696